=== PATIENT | male | born 1990 | race Hispanic/Latino ===

== ENCOUNTER 2022-03-14 22:00 | Emergency (ER) | payer SELFPAY ==
--- OUTSIDE RECORDS SUMMARY | 2022-03-14 22:04 | XMS REPORT | Continuity of Care Document ---
:1990 Author Organization [facility] t Address [address] [place] [address] Care Team Providers Name Role Phone Giselle CHUTE TAPPER Attending Clinician Pob1, Care Clinic Attending Clinician Unavailable Anene CHUTE TAPPER Attending Clinician ANENE Attending Clinician Unavailable Payers Payer Name Policy Type Policy Number Effective Date Expiration Date S ource Problems Condition Condition Condition Status Onset Resolution Last Treating Co mments Source Name Details Category Date Date Treatment Clinician Date No known No known Disease Unive rs active active ity of problems problems [facility] Allergies, Adverse Reactions, Alerts Allergy Allergy Status Severity Reaction(s) Onset Inactive Treating Comm ents Source Name Type Date Date Clinician NO KNOWN Drug Active Univers ALLERGIE Class it of S [facility] Social History Social Habit Start Date Stop Date Quantity Comments [facility] to [facility] Smoking Status Start Date Stop Date Source Unknown if ever smoked [facility] Medications Ordered Filled Start Stop Current Ordering Indication Dosage Frequency Signature Comments Components Source Medication Medication Date Date Medication? Clinician (SIG) Name Name No known No Univers medications [facility] No known No Univers medications [facility] Vital Signs Vital Name Observation Time Observation Value Comments Source Systolic blood 2020-04-04 15:19:00 119 mm[Hg] Univer sity of pressure [facility] Diastolic blood 2020-04-04 15:19:00 81 mm[Hg] Unive rsity of [facility] Heart rate 2020-04-04 15:19:00 103 /min Universi ty [facility] Body temperature 2020-04-04 15:19:00 37 [facility]inta [facility] Respiratory rate 2020-04-04 15:19:00 18 /min [facility] Body height 2020-04-04 15:19:00 172.7 [facility] Oxygen saturation in 2020-04-04 15:19:00 94 /min University Arterial blood by [facility] Pulse oximetry Branch Procedures This patient has no known procedures. Encounters Start End Encounter Admission Attending Care Care Encounter Source Date/Time Date/Time Type Type Clinicians Facility Department ID 2021-07-21 Outpatient CALIXTOUS RODRIGUES [id number] 16:37:35 [id number] Health 2020-04-05 2020-04-05 [facility] [id number] [facility] 00:00:00 00:00:00 [facility] [id number] [facility] [place] [id number] [facility] as Professio [phone] [address] 2020-04-04 2020-04-04 Urgent Pob1, Acute Care Clinic [facility] [id number] Univers 10:08:39 11:06:57 Genet Whitt [facility] [id number] [facility] [place] [id number] [facility] [phone] [address] 2020-04-04 2020-04-04 Outpatient R JOSE A [facility] [id number] Univers 10:00:00 10:00:00 GENET ferrer [facility] Results This patient has no known results.
[2022-03-14 23:07] LABS: Absolute Lymphocytes (CBC) 3.1 K/uL (0.7-4.9); Hematocrit 46.6 % (39.6-49.0); Lymphocytes % 27.1 % (15.3-44.8); MPV 7.8 fL (7.6-11.3); RBC Red Blood Cell Count 5.55 M/uL (4.33-5.43)
[2022-03-14 23:27] LABS: Potassium 3.3 mmol/L (3.5-5.1); Troponin High Sensitivity 5.3 pg/mL (<58.9)
--- NOTE | 2022-03-15 01:42 | EDPHYS ---
Physician Documentation [facility] Name: Uzair Solomon Age: 31 yrs Sex: Male : 1990 Arrival Date: 03/14/2022 Time: 22:19 Bed 6 Private MD: ED Physician Carmelo Gonzalez HPI: 03/14 23:47 This 31 yrs old Male presents to ER via Ambulatory with complaints of Chest rn Pain. 23:47 The patient or guardian reports chest pain that is located primarily in the substernal rn area. The pain does not radiate. Associated signs and symptoms: Pertinent negatives: abdominal pain, cough, diaphoresis, headache, lower extremity swelling, near syncope, palpitations, shortness of breath, syncope, vomiting. The chest pain is described as sharp. Duration: The patient or guardian reports multiple episodes, that are intermittent. Modifying factors: The symptoms are alleviated by nothing. the symptoms are aggravated by looking down. Severity of pain: At its worst the pain was mild in the emergency department the pain is unchanged. The patient has not experienced similar symptoms in the past. The patient has not recently seen a physician. Pt reports 1 week intermittent chest pain, substernal, sharp, worse when "looks down". 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 No cough. NO sob. Does not smoke or vape. No famhx of early cardiac problems. Today had cramping and pain in both thumbs so came in for evaluation.. Historical: - Allergies: 22:40 No Known Allergies; kd3 - Home Meds: 22:40 None [Active]; kd3 - Immunization history:: Adult Immunizations up to date, Client reports receiving the 2nd dose of the Covid vaccine. - Social history:: Smoking status: Patient denies any tobacco usage or history of. - Family history:: not pertinent. - Hospitalizations: : No recent hospitalization is reported. ROS: 23:47 Constitutional: Negative for fever, chills, and weight loss, Eyes: Negative for injury, rn pain, redness, and discharge, Neck: Negative for injury, pain, and swelling, Cardiovascular: Negative for palpitations, and edema, Respiratory: Negative for shortness of breath, cough, wheezing, and pleuritic chest pain, Abdomen/GI: Negative for abdominal pain, nausea, vomiting, diarrhea, and constipation, Back: Negative for injury and pain, MS/Extremity: Negative for injury and deformity, Skin: Negative for injury, rash, and discoloration, Neuro: Negative for headache, weakness, numbness, tingling, and seizure. Exam: 23:47 Constitutional: This is a well developed, well nourished patient who is awake, alert, rn and in no acute distress. Head/Face: Normocephalic, atraumatic. Eyes: Periorbital areas with no swelling, redness, or edema. Cardiovascular: Regular rate and rhythm. No pulse deficits. Respiratory: No increased work of breathing, no retractions or nasal flaring. Abdomen/GI: Soft, non-tender Skin: Warm, dry with normal turgor. Normal color with no rashes, no lesions, and no evidence of cellulitis. MS/ Extremity: Pulses equal, no cyanosis. Neurovascular intact. Full, normal range of motion. Equal circumference. Neuro: Awake and alert, GCS 15, oriented to person, place, time, and situation. Cranial nerves II-XII grossly intact. Motor strength 5/5 in all extremities. Sensory grossly intact. Cerebellar exam normal. Normal gait. Vital Signs: 22:35 BP 123 / 97; Pulse 76; Resp 18; Temp 98.0; Pulse Ox 99% on R/A; Weight 111.13 kg; kd3 Height 5 ft. 9 in. (175.26 cm); Pain 3/10; 23:20 BP 122 / 84; Pulse 70; Resp 18; Pulse Ox 99% on R/A; kd3 23:55 Pulse 77; Resp 18; Pulse Ox 99% on R/A; kd3 03/15 01:47 BP 128 / 87; Pulse 70; Resp 18; Pulse Ox 100% on R/A; kd3 03/14 22:35 Body Mass Index 36.18 (111.13 kg, 175.26 cm) 3 MDM: 03/14 22:21 Patient medically screened. rn 03/15 01:39 Differential diagnosis: acute myocardial infarction, acute pericarditis, anxiety, rn coronary artery disease chest wall pain, costochondritis, esophagitis, gastritis, gastroesophageal reflux disease (GERD), pericarditis, pleurisy, pneumothorax, pulmonary embolus. Data reviewed: vital signs, nurses notes, lab test result(s), EKG, radiologic studies, CT scan, plain films, and as a result, I will discharge patient. Counseling: I had a detailed discussion with the patient and/or guardian regarding: the historical points, exam findings, and any diagnostic results supporting the discharge/admit diagnosis, lab results, radiology results, the need for outpatient follow up, to return to the emergency department if symptoms worsen or persist or if there are any questions or concerns that arise at home. Response to treatment: the patient's symptoms have mildly improved after treatment, and as a result, I will discharge patient. Special discussion: Based on the patient's history, exam, and Dx evaluation, there is no indication for emergent intervention or inpatient Tx. It is understood by the patient/guardian that if the Sx's persist or worsen they need to return immediately for re-evaluation. I discussed with the patient/guardian in detail that at this point there is no indication for admission to the hospital. It is understood, however, that if the symptoms persist or worsen the patient needs to return immediately for re-evaluation. 01:39 ED course: D-dimer elevated, CT PE neg for acute findings. Stable vitals, neg trop. rn Will dc home. . 03/14 22:31 Order name: Basic Metabolic Panel; Complete Time: rn 03/14 22:31 Order name: CBC with Diff; Complete Time: rn 03/14 22:31 Order name: D-Dimer; Complete Time: rn 03/14 22:31 Order name: Troponin HS; Complete Time: rn 03/14 22:31 Order name: XRAY Chest (1 view) rn 03/14 23:16 Order name: CT Chest For PE Angio rn 03/14 22:31 Order name: EKG; Complete Time: : rn 03/14 22:31 Order name: Cardiac monitoring; Complete Time: : rn 03/14 22:31 Order name: EKG - Nurse/Tech; Complete Time: : rn 03/14 22:31 Order name: IV Saline Lock; Complete Time: : rn 03/14 22:31 Order name: Labs collected and sent; Complete Time: 23: rn 03/14 22:31 Order name: O2 Per Protocol; Complete Time: 23: rn 03/14 22:31 Order name: O2 Sat Monitoring; Complete Time: 23:04 rn Administered Medications: No medications were administered Disposition Summary: 03/15/22 01:40 Discharge Ordered Location: Home rn Problem: new rn Symptoms: have improved rn Condition: Stable rn Diagnosis - Chest pain, unspecified rn Followup: rn - With: Private Physician - When: As needed - Reason: Recheck today's complaints, Re-evaluation by your physician Discharge Instructions: - Discharge Summary Sheet rn - Nonspecific Chest Pain, Adult rn Forms: - Medication Reconciliation Form rn - Thank You Letter rn - Antibiotic civil attorney - Prescription Opioid Use rn Signatures: Dispatcher [employer] EDCarmelo Frye MD MD rn Doucette, Kyli, RN RN kd3 Corrections: (The following items were deleted from the chart) 03/14 23:48 23:47 Pt reports 1 week intermittent chest pain, substernal, sharp, worse when "looks rn down". 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 No cough. NO sob. Does not smoke or vape. No famhx of early cardiac problems. . rn
--- NOTE | 2022-03-15 01:42 | ER ---
Nurse's Notes [facility] Name: Uzair Solomon Age: 31 yrs Sex: Male : 1990 Arrival Date: 03/14/2022 Time: 22:19 Bed 6 Private MD: Diagnosis: Chest pain, unspecified Presentation: 03/14 22:35 Chief complaint: Patient states: I have had some chest pain in my upper chest when I kd3 "look down" for the past week. 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 Coronavirus screen: Vaccine status: Patient reports receiving the 2nd dose of the covid vaccine. Ebola Screen: No symptoms or risks identified at this time. Initial Sepsis Screen: Does the patient meet any 2 criteria? No. Patient's initial sepsis screen is negative. Does the patient have a suspected source of infection? No. Patient's initial sepsis screen is negative. Risk Assessment: Do you want to hurt yourself or someone else? Patient reports no desire to harm self or others. Onset of symptoms was March 14, 2022. 22:35 Method Of Arrival: Ambulatory kd3 22:35 Acuity: ROGE 3 kd3 Triage Assessment: 22:40 General: Appears in no apparent distress. Behavior is calm, cooperative. Pain: kd3 Complains of pain in chest, right arm, bilateral thumbs. Neuro: Level of Consciousness is awake, alert, obeys commands, Oriented to person, place, time, situation. Cardiovascular: Patient's skin is warm and dry. Respiratory: Airway is patent Trachea midline Respiratory effort is even, unlabored, Respiratory pattern is regular, symmetrical. Historical: - Allergies: 22:40 No Known Allergies; kd3 - Home Meds: 22:40 None [Active]; kd3 - Immunization history:: Adult Immunizations up to date, Client reports receiving the 2nd dose of the Covid vaccine. - Social history:: Smoking status: Patient denies any tobacco usage or history of. - Family history:: not pertinent. - Hospitalizations: : No recent hospitalization is reported. Screenin:41 Abuse screen: Denies threats or abuse. Denies injuries from another. Nutritional kd3 screening: No deficits noted. Tuberculosis screening: No symptoms or risk factors identified. Fall Risk None identified. Assessment: 22:42 Pain: Pain radiates to right arm Pain began 2-3 days ago. kd3 Vital Signs: 22:35 BP 123 / 97; Pulse 76; Resp 18; Temp 98.0; Pulse Ox 99% on R/A; Weight 111.13 kg; kd3 Height 5 ft. 9 in. (175.26 cm); Pain 3/10; 23:20 BP 122 / 84; Pulse 70; Resp 18; Pulse Ox 99% on R/A; kd3 23:55 Pulse 77; Resp 18; Pulse Ox 99% on R/A; kd3 03/15 01:47 BP 128 / 87; Pulse 70; Resp 18; Pulse Ox 100% on R/A; kd3 03/14 22:35 Body Mass Index 36.18 (111.13 kg, 175.26 cm) kd3 ED Course: 03/14 22:19 Patient arrived in ED. ja2 22:21 Carmelo Gonzalez MD is Attending Physician. rn 22:23 Atnelmo Maria, MARYAM is Primary Nurse. as6 22:40 Triage completed. kd3 22:41 Patient has correct armband on for positive identification. Client placed on continuous kd3 cardiac and pulse oximetry monitoring. NIBP monitoring applied. 22:41 No provider procedures requiring assistance completed. Patient maintains SpO2 kd3 saturation greater than 95% on room air. 22:42 Arm band placed on right wrist. kd3 23:04 Inserted saline lock: 20 gauge in left antecubital area, using aseptic technique. Blood kd3 collected. 23:09 XRAY Chest (1 view) In Process Unspecified. EDMS 23:55 CT Chest For PE Angio In Process Unspecified. EDMS 03/15 01:48 IV discontinued, intact, bleeding controlled, No redness/swelling at site. Pressure kd3 dressing applied. Administered Medications: No medications were administered Medication: 03/14 22:42 VIS not applicable for this client. kd3 Outcome: 03/15 01:40 Discharge ordered by . rn 01:48 Discharged to home ambulatory. kd3 01:48 Condition: stable 01:48 Discharge instructions given to patient, Instructed on discharge instructions, follow up and referral plans. Demonstrated understanding of instructions, follow-up care. 01:48 Patient left the ED. kd3 Signatures: Dispatcher [employer] EDCaremlo Frye MD MD rn Juan, Antelmo Cooley RN RN as6 Lainey Mcdonald RN RN kd3
[2022-03-15 01:59] VITALS: TEMP 98
[2022-03-15 02:03] VITALS: BP 128/87; O2SAT 100
--- NOTE | 2022-03-16 10:14 | RAD REPORT ---
EXAM DESCRIPTION: RAD - Chest Single View - 03/14/2022 11:07 pm CLINICAL HISTORY: The patient is 31 years old and is Male; CHEST PAIN TECHNIQUE: Frontal view of the chest. COMPARISON: No relevant prior studies available. FINDINGS: Lungs: Unremarkable. No consolidation. Pleural space: Unremarkable. No pneumothorax. Heart: Unremarkable. Mediastinum: Unremarkable. Bones/joints: Unremarkable. IMPRESSION: No acute findings in the chest. Electronically signed by: Randall Kc MD 03/14/2022 11:52 PM CDT Due to temporary technical issues with the PACS/Fluency reporting system, reports are being signed by the in house radiologist without review as a courtesy to ensure prompt reporting. The interpreting r adiologist is fully responsible for the content of the report.
--- NOTE | 2022-03-16 11:53 | EKG ---
Test Date: 2022-03-14 Test Time: 22:55:39 Heavy Equipment Service Manager: GERSON MEASUREMENT RESULTS: Intervals: Rate: 65 CA: 156 QRSD: 106 QT: 406 QTc: 422 [place]: P: 36 CA: 156 QRS: 12 T: 30 INTERPRETIVE STATEMENTS: Normal sinus rhythm Inferior infarct, age undetermined Cannot rule out Anterior infarct, age undetermined Abnormal ECG No previous ECG available for comparison Electronically Signed On 03-16-22 11:50:17 CDT by Amador Mccauley
--- NOTE | 2022-03-16 11:59 | RAD REPORT ---
EXAM DESCRIPTION: CT - Chest For Pe Angio - 03/15/2022 6:57 am Chest For Pe Angio CLINICAL HISTORY: 31-year-old male with positive d-dimer COMPARISON: None. TECHNIQUE: CT angiography of the pulmonary arteries was performed following intravenous administrati on of contrast. Coronal and bilateral oblique maximum intensity projections (MIPS) were created. This exam was performed according to our departmental dose optimization program which includes use of aut omated exposure control, adjustment of the mA and/or kV according to patient size and/or use of itera tive reconstruction technique. FINDINGS: Chest: Evaluation through the lungs reveals no focal opacity, pleural effusion or pneumothorax. There is min imal dependent basilar atelectasis and scarring. The tracheobronchial airways are patent. No signific ant mediastinal or axillary lymphadenopathy by CT measurement criteria. Limited evaluation of the upper abdomen shows no acute intra-abdominal abnormalities. The osseous structures are within normal limits. CT angiography: Diagnostic CT angiography of the pulmonary arteries without intraluminal filling defe ct noted to suggest pulmonary arterial embolus. IMPRESSION: 1. Diagnostic pulmonary angiography without findings to suggest pulmonary arterial embol us. 2. The lungs are clear without focal opacity, pleural effusion or pneumothorax. 3. No specific findings are noted to suggest etiology of the patient's chest pain and shortness of br eath. Electronically signed by: Brittney Moore MD 03/15/2022 12:47 AM CDT Due to temporary technical issues with the PACS/Fluency reporting system, reports are being signed by the in house radiologist without review as a courtesy to ensure prompt reporting. The interpreting r adiologist is fully responsible for the content of the report.
== END 2022-03-15 01:48 | disposition home or self-care (01) ==
LOC: ER 22:00
DX: R07.9 Chest pain, unspecified (principal)
CPT/HCPCS: 36415; 71045; 71275; 80048; 84484; 85025; 85379; 93005; 99284; Q9967